=== PATIENT | male | born 1930 | race Caucasian/White ===

== ENCOUNTER → 2017-05-31 | Outpatient (CLI) | payer OTHER ==
[~2017-05-31] MED LIST: AMOX500C2 PO; DOCU-116 PO; HYDR-4060 PO; HYDR25TA PO; IBUP-2070 PO; LIDO700A30 TP; LISI40TA4 PO; METF500T6 PO; TIZA4CAP8 PO
== END | disposition home or self-care (01) ==
LOC: OIH 15:53
PROVIDERS: ATTEND Family Medicine
DX: J44.1 Chronic obstructive pulmonary disease with (acute) exacerbation (principal)
CPT/HCPCS: 71046